=== PATIENT | female | born 1975 | race Two or more races ===

== ENCOUNTER 2017-09-10 17:12 | Emergency (ER) | payer OTHER ==
[~2017-09-10] VITALS: Ht 165.1 cm; Wt 52.2 kg
[2017-09-10 18:21] VITALS: BP 118/83
[2017-09-10] MEDS ORDERED: DEXAMETHASONE SOD PHOSPHATE 10 MG/ML VIAL ONE (18:26)
[2017-09-10] MEDS ORDERED: diphenhydrAMINE HCL 50 MG/ML VIAL ONE (18:26)
[2017-09-10] MEDS ORDERED: FAMOTIDINE (20 MG) 20 MG TABLET ONE (18:26)
[2017-09-10] MEDS ORDERED: DEXAMETHASONE SOD PHOSPHATE 4 MG/ML VIAL IM ONE ×2 (18:30)
[2017-09-10] MEDS ORDERED: diphenhydrAMINE HCL 50 MG/ML VIAL IM ONE (18:30)
[2017-09-10] MEDS ORDERED: FAMOTIDINE (20 MG) 20 MG TABLET PO ONE (18:30)
--- NOTE | 2017-09-10 19:34 | NUR ---
PT TREATED AND LEFT PRIOR TO SHIFT.
== END 2017-09-10 19:36 | disposition home or self-care (01) ==
LOC: ER 17:13
DX: R23.8 Other skin changes (principal); R21 Rash and other nonspecific skin eruption
CPT/HCPCS: 96372 ×2; 99284; A4606; J1100; J1200; Z7610

== ENCOUNTER 2021-04-11 23:31 | Emergency (ER) | payer OTHER ==
[~2021-04-11] VITALS: Ht 162.6 cm; Wt 74.8 kg
[2021-04-11] MEDS ORDERED: DEXAMETHASONE SOD PHOSPHATE 10 MG/ML VIAL ONE (23:56)
[2021-04-11] MEDS ORDERED: CARISOPRODOL 350 MG TABLET ONE (23:56)
[2021-04-11] MEDS ORDERED: KETOROLAC TROMETHAMINE INJ 60 MG/2 ML VIAL IM ONE (23:56)
[2021-04-11] MEDS ORDERED: IBUP-1957 PO (23:59)
[2021-04-11] MEDS ORDERED: CARI350T PO (23:59)
[2021-04-11] MEDS ORDERED: PRED50TA PO (23:59)
[2021-04-12] MEDS ORDERED: DEXAMETHASONE SOD PHOSPHATE 4 MG/ML VIAL IM ONE
[2021-04-12] MEDS ORDERED: CARISOPRODOL 350 MG TABLET PO ONE
[2021-04-12] MEDS ORDERED: KETOROLAC TROMETHAMINE INJ 60 MG/2 ML VIAL IM ONE
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
--- NOTE | 2021-04-12 00:04 | NUR ---
X RAY AT BEDSIDE
--- NOTE | 2021-04-12 00:36 | NUR ---
Patient discharged to home in stable condition. Written and verbal after care instructions given. Patient verbalizes understanding of instruction and RX. Left home with son.
[2021-04-12 00:41] VITALS: BP 119/72
== END 2021-04-12 00:41 | disposition home or self-care (01) ==
LOC: ER 23:34
DX: S16.1XXA Strain of muscle, fascia and tendon at neck level, initial encounter (principal); S39.012A Strain of muscle, fascia and tendon of lower back, initial encounter; M62.838 Other muscle spasm; Z79.899 Other long term (current) drug therapy; V49.49XA Driver injured in collision with other motor vehicles in traffic accident, initial encounter; Y93.89 Activity, other specified; Y92.413 State road as the place of occurrence of the external cause; Y99.8 Other external cause status
CPT/HCPCS: 72100; 96372 ×2; 99284; J1100; J1885

== ENCOUNTER 2022-12-16 02:39 | Emergency (ER) | payer OTHER ==
[~2022-12-16] VITALS: Ht 167.6 cm; Wt 74.4 kg
[~2022-12-16 02:39] MED LIST: CARI350T PO; IBUP-1957 PO; PRED50TA PO
[2022-12-16 03:10] VITALS: BP 113/72
--- NOTE | 2022-12-16 03:27 | NUR ---
Patient does not wish to proceed with medical care recommended by Dr. Estrada. Patient given information related to possible complications, up to and including , which could occur as a result of leaving the hospital at this time. Patient verbalizes understanding of risks involved due to leaving against medical advice. Patient has signed AMA form.
== END 2022-12-16 03:34 | disposition left against medical advice (07) ==
LOC: ER 02:39
DX: R51.9 Headache, unspecified (principal); R10.9 Unspecified abdominal pain; Z79.899 Other long term (current) drug therapy; V89.2XXA Person injured in unspecified motor-vehicle accident, traffic, initial encounter; Y93.89 Activity, other specified; Y92.89 Other specified places as the place of occurrence of the external cause; Y99.8 Other external cause status